=== PATIENT | male | born 1975 | race African-American/Black ===

== ENCOUNTER 2017-09-18 21:53 | Emergency (ER) | payer BC ==
[2017-09-18] MEDS: IV NORMAL SALINE 1000ML BAG 1,000 ML IV (22:30)
[2017-09-19 00:02] LABS: AGAP ISTAT 17 mmol/L (6-14); BUN ISTAT 5 mg/dL (8-26); CHLORIDE ISTAT 103 mmol/L (98-110); CREATININE ISTAT 1.3 mg/dL (0.5-1.4); GLUCOSE ISTAT 104 mg/dL (70-99); HEMATOCRIT ISTAT 44 % (37-52); ION CA ISTAT 1.11 mmol/L (1.13-1.32); POTASSIUM ISTAT 3.5 mmol/L (3.5-5.0); SODIUM ISTAT 143 mmol/L (135-145); TOT CO2 ISTAT 28 mmol/L (23-32)
[2017-09-19] MEDS: THIAMINE 100 MG TABLET. PO (00:30)
== END 2017-09-19 00:27 | disposition home or self-care (01) ==
LOC: ER 09-19 00:27
DX: F10.20 Alcohol dependence, uncomplicated (principal); E86.0 Dehydration
CPT/HCPCS: 36415; 80047; 85014; 85018; 96360; 99284-25; J7030

== ENCOUNTER 2020-04-25 15:40 | Emergency (ER) | payer BC, OTHER ==
[~2020-04-25] VITALS: Ht 182.9 cm; Wt 75.0 kg
[2020-04-25] MEDS ORDERED: IV NORMAL SALINE 1000ML BAG 1,000 ML IV ONE (16:45)
[2020-04-25] MEDS ORDERED: ONDANSETRON PF 4 MG/2 ML VIAL. IV ONE (16:45)
[2020-04-25 16:48] LABS: BASO # 0.1 x10^3/uL (0.0-0.2); BASO % 1 % (0-3); EOS % 1 % (0-3); LYMPH # 2.7 x10^3/uL (1.0-4.8); LYMPH % 39 % (24-48); MEAN CORPUSCULAR HEMOGLOBIN 30 pg (25-35); MEAN CORPUSCULAR HGB CONC 34 g/dL (31-37); MEAN CORPUSCULAR VOLUME 89 fL (79-100); MONO # 0.5 x10^3/uL (0.0-1.1); MONO % 8 % (0-9); NEUT # 3.6 x10^3/uL (1.8-7.7); NEUT % 52 % (31-73); PLATELET COUNT 379 x10^3/uL (140-400); RED BLOOD COUNT 4.97 x10^6/uL (4.30-5.70); RED CELL DISTRIBUTION WIDTH 15.4 % (11.5-14.5); WHITE BLOOD COUNT 6.9 x10^3/uL (4.0-11.0)
[2020-04-25 16:56] LABS: CREATININE 0.9 mg/dL (0.7-1.3); GFR 109.9; POTASSIUM 4.2 mmol/L (3.5-5.1)
[2020-04-25 17:02] LABS: ALBUMIN 4.2 g/dL (3.4-5.0); ALBUMIN/GLOBULIN RATIO 0.9 (1.0-1.7); MAGNESIUM 2.4 mg/dL (1.8-2.4); TOTAL BILIRUBIN 0.4 mg/dL (0.2-1.0); TOTAL PROTEIN 8.8 g/dL (6.4-8.2)
[2020-04-25] MEDS ORDERED: FAMOTIDINE 20 MG/2 ML VIAL IVP ONE (17:15)
[2020-04-25 17:48] VITALS: BP 142/87
[2020-04-25 18:14] LABS: BILIRUBIN,URINE NEGATIVE (NEG); CLARITY,URINE CLEAR; COLOR,URINE YELLOW; NITRITE,URINE NEGATIVE (NEG); PH,URINE 5.5 (<5.0-8.0); PROTEIN,URINE 30 mg/dL (NEG-TRACE); UROBILINOGEN,URINE 0.2 mg/dL (0.2 mg/dL)
[2020-04-25 18:24] LABS: BACTERIA,URINE 0 /HPF (0-FEW); HYALINE CASTS, URINE FEW /HPF; RBC,URINE 0 /HPF (0-2); SQUAMOUS EPITHELIAL CELL,UR OCC /LPF; WBC,URINE 0 /HPF (0-4)
--- NOTE | 2020-04-25 18:33 | PHYS DOC ---
Past Medical History Past Medical History: No Pertinent History Past Surgical History: No Surgical History Smoking Status: Current Every Day Smoker Alcohol Use: Heavy Drug Use: None General Adult EDM: Chief Complaint: NAUSEA/VOMITING/DIARRHA HPI: HPI: Patient is a 44 year old AA male who presents to the emergency department with complaints of nausea, and vomiting for the last 3 days. Patient reports epigastric and left upper quadrant abdominal pain. He denies any known exposure to COVID-19. Patient reports he has not had a job for the last 8 months and that he is keeping to himself at home. He denies any chest pain, shortness of breath, diarrhea, back pain, body aches, sore throat, headache, palpitations, or dizziness. The patient currently rates pain in his left upper quadrant an 8 out of 10 on the pain scale, he describes it as a sharp pain, he denies any radiation of the pain, he denies any alleviating factors, the pain is worse with palpation and vomiting. Patient reports he is only vomited once in the last 24 hours. He denies any blood in his vomit. Review of Systems: Review of Systems: Constitutional: Denies fever or chills. [] Eyes: Denies change in visual acuity. [] HENT: Denies nasal congestion or sore throat. [] Respiratory: Denies cough or shortness of breath. [] Cardiovascular: Denies chest pain or edema. [] GI: See HPI : Denies dysuria. [] Musculoskeletal: Denies back pain or joint pain. [] Integument: Denies rash. [] Neurologic: Denies headache Lymphatic: Denies swollen glands. [] Psychiatric: Denies depression or anxiety. [] Heart Score: Risk Factors: Risk Factors: DM, Current or recent (<one month) smoker, HTN, HLP, family history of CAD, obesity. Risk Scores: Score 0 - 3: 2.5% MACE over next 6 weeks - Discharge Home Score 4 - 6: 20.3% MACE over next 6 weeks - Admit for Clinical Observation Score 7 - 10: 72.7% MACE over next 6 weeks - Early Invasive Strategies Current Medications: Current Medications Medications (Trade) Dose Ordered Sig/Elisabeth Start Time Stop Time Status Last Admin Dose Admin Famotidine (Pepcid Vial) 20 mg 1X ONCE 04/25/20 17:15 04/25/20 17:16 DC 04/25/20 17:20 20 MG Ondansetron HCl (Zofran) 4 mg 1X ONCE 04/25/20 16:45 04/25/20 16:46 DC 04/25/20 16:47 4 MG Sodium Chloride 1,000 ml @ 1,000 mls/hr 1X ONCE 04/25/20 16:45 04/25/20 17:44 DC 04/25/20 16:47 1,000 MLS/HR Allergies: Allergies: Allergies Coded Allergies Type Severity Reaction Last Updated Verified No Known Drug Allergies 09/18/17 No Physical Exam: PE: Constitutional: Well developed, well nourished, no acute distress, non-toxic appearance. [] HENT: Normocephalic, atraumatic, bilateral external ears normal, nose normal; dry mucous membranes [] Eyes: PERRLA, EOMI, conjunctiva normal, no discharge. [] Neck: Normal range of motion, no stridor. [] Cardiovascular:Heart rate regular rhythm Lungs & Thorax: Respirations even and unlabored, no retractions, no respiratory distress Abdomen: soft, epigastric and left upper quadrant tenderness to palpation, no rebound tenderness, no guarding Skin: Warm, dry, no erythema, no rash. [] Extremities: No cyanosis, ROM intact, no edema. [] Neurologic: Alert and oriented X 3, no focal deficits noted. [] Psychologic: Affect normal, judgement normal, mood normal. [] Current Patient Data: Labs: Laboratory Tests Test 04/25/20 16:10 04/25/20 18:00 White Blood Count 6.9 x10^3/uL (4.0-11.0) Red Blood Count 4.97 x10^6/uL (4.30-5.70) Hemoglobin 15.0 g/dL (13.0-17.5) Hematocrit 44.0 % (39.0-53.0) Mean Corpuscular Volume 89 fL (79-100) Mean Corpuscular Hemoglobin 30 pg (25-35) Mean Corpuscular Hemoglobin Concent 34 g/dL (31-37) Red Cell Distribution Width 15.4 % (11.5-14.5) H Platelet Count 379 x10^3/uL (140-400) Neutrophils (%) (Auto) 52 % (31-73) Lymphocytes (%) (Auto) 39 % (24-48) Monocytes (%) (Auto) 8 % (0-9) Eosinophils (%) (Auto) 1 % (0-3) Basophils (%) (Auto) 1 % (0-3) Neutrophils # (Auto) 3.6 x10^3/uL (1.8-7.7) Lymphocytes # (Auto) 2.7 x10^3/uL (1.0-4.8) Monocytes # (Auto) 0.5 x10^3/uL (0.0-1.1) Eosinophils # (Auto) 0.0 x10^3/uL (0.0-0.7) Basophils # (Auto) 0.1 x10^3/uL (0.0-0.2) Sodium Level 130 mmol/L (136-145) L Potassium Level 4.2 mmol/L (3.5-5.1) Chloride Level 90 mmol/L (98-107) L Carbon Dioxide Level 29 mmol/L (21-32) Anion Gap 11 (6-14) Blood Urea Nitrogen 8 mg/dL (8-26) Creatinine 0.9 mg/dL (0.7-1.3) Estimated GFR (Cockcroft-Gault) 109.9 BUN/Creatinine Ratio 9 (6-20) Glucose Level 97 mg/dL (70-99) Calcium Level 9.0 mg/dL (8.5-10.1) Magnesium Level 2.4 mg/dL (1.8-2.4) Total Bilirubin 0.4 mg/dL (0.2-1.0) Aspartate Amino Transferase (AST) 47 U/L (15-37) H Alanine Aminotransferase (ALT) 28 U/L (16-63) Alkaline Phosphatase 120 U/L (46-116) H Total Protein 8.8 g/dL (6.4-8.2) H Albumin 4.2 g/dL (3.4-5.0) Albumin/Globulin Ratio 0.9 (1.0-1.7) L Lipase 275 U/L (73-393) Urine Collection Type Unknown Urine Color Yellow Urine Clarity Clear Urine pH 5.5 (<5.0-8.0) Urine Specific [place] 1.010 (1.000-1.030) Urine Protein 30 mg/dL (NEG-TRACE) Urine Glucose (UA) Negative mg/dL (NEG) Urine Ketones (Stick) 40 mg/dL (NEG) Urine Blood Negative (NEG) Urine Nitrite Negative (NEG) Urine Bilirubin Negative (NEG) Urine Urobilinogen Dipstick 0.2 mg/dL (0.2 mg/dL) Urine Leukocyte Esterase Negative (NEG) Urine RBC 0 /HPF (0-2) Urine WBC 0 /HPF (0-4) Urine Squamous Epithelial Cells Occ /LPF Urine Bacteria 0 /HPF (0-FEW) Urine Hyaline Casts Few /HPF Urine Mucus Slight /LPF Laboratory Tests 04/25/20 16:10 Laboratory Tests 04/25/20 16:10 Vital Signs: Vital Signs Date Time Temp Pulse Resp B/P (MAP) Pulse Ox O2 Delivery O2 Flow Rate FiO2 04/25/20 17:48 89 142/87 (105) 96 Room Air 04/25/20 15:45 98.6 18 98.6 EKG: EKG: [] Radiology/Procedures: Radiology/Procedures: [] Course & Med Decision Making: Course & Med Decision Making Pertinent Labs and Imaging studies reviewed. (See chart for details) 44-year-old male presents to the emergency department with complaints of nausea, vomiting, and upper left abdominal pain for 3 days. Was given a liter of normal saline, 4 mg Zofran, 20 mg of Pepcid.. Patient reported feeling better after these medications. Work-up included labs and medications. CBC was unremarkable; CMP revealed a sodium of 130, chloride of 90, AST of 47, alk phos of 120; unremarkable urinalysis. Prescriptions written for Zofran and famotidine. Patient was encouraged to go home and follow a clear liquid diet for 24 hours then advance as tolerated starting with bland foods. Instructed the patient to follow-up with his primary care doctor this week if symptoms persist, return to the ER symptoms worsen or he develops a fever. Patient verbalized an understanding of home care, medications, follow-up, and return to ED instructions and was in agreement with the plan of care. [] Dragon Disclaimer: Dragon Disclaimer: This electronic medical record was generated, in whole or in part, using a voice recognition dictation system. Departure Departure Impression: Primary Impression: Nausea & vomiting Qualified Codes: R11.2 - Nausea with vomiting, unspecified Additional Impression: Gastritis Qualified Codes: K29.00 - Acute gastritis without bleeding Disposition: HOME, SELF-CARE Condition: STABLE Referrals: NO PCP (PCP) Patient Instructions: Gastritis, Adult, [id number], Nausea and Vomiting, [id number] Additional Instructions: Fill prescriptions and use them as directed. Recommend clear fluids for the next 24 hours. Then you may advance to bland foods such as bananas, rice, applesauce, and dry toast. Follow-up with your primary care doctor in the next 1-2 days. Return to the emergency room if your symptoms worsen. [facility] [address] [place] [address] [facility] [address] [place] [address] [facility] [address] [facility] [place] [address] [facility] [address] [place] [address] [facility] [address] [place] [address] [facility] [address] [place] [address] [facility] [address] [place] [address] [facility] [address] [place] [address] [facility] [address] [place] [address] [facility] [address] [place] [address] Scripts Famotidine (FAMOTIDINE) 20 Mg Tablet 20 MG PO HS for 10 Days, #10 TAB 0 Refills Prov: NIKKI HERRERA APRN 04/25/20 Ondansetron Hcl (ONDANSETRON HCL) 4 Mg Tablet 1 TAB PO PRN Q6HRS PRN for NAUSEA/VOMITING for 3 Days, #10 TAB 0 Refills Prov: NIKKI HERRERA APRN 04/25/20 Justicifation of Admission Dx: Justifications for Admission: Justification of Admission Dx: N/A NIKKI HERRERA APRN Apr 25, 2020 18:32
[2020-04-25] MEDS ORDERED: FAMO20TA5 PO (18:40)
[2020-04-25] MEDS ORDERED: ONDA-84 PO (18:40)
== END 2020-04-25 19:00 | disposition home or self-care (01) ==
LOC: ER 15:40
DX: K29.00 Acute gastritis without bleeding (principal); R11.2 Nausea with vomiting, unspecified; R10.12 Left upper quadrant pain; R10.13 Epigastric pain; F17.200 Nicotine dependence, unspecified, uncomplicated
CPT/HCPCS: 36415; 80053; 81001; 83690; 83735; 85025; 96361; 96374; 96375; 99285; J2405; J3490; J7030

== ENCOUNTER 2020-05-29 06:00 | Emergency (ER) | payer OTHER ==
[~2020-05-29] VITALS: Ht 182.9 cm; Wt 62.7 kg
[~2020-05-29 06:00] MED LIST: FAMO20TA5 PO; ONDA-84 PO
--- NOTE | 2020-05-29 06:18 | PHYS DOC ---
Past Medical History Past Medical History: No Pertinent History Past Surgical History: No Surgical History Smoking Status: Current Every Day Smoker Alcohol Use: Heavy Drug Use: None General Adult EDM: Chief Complaint: OTHER COMPLAINTS HPI: HPI: The history was obtained from the patient and mother. Patient is a 44-year-old male with PMH alcohol abuse, chronic pancreatitis who presents with a chief complaint of alcohol detoxification. Mother presents with son to our emergency department for concerns of behavioral issues and alcohol abuse. She states that he drinks most daily. She states that he experienced a closed head injury in November 2019 has had behavioral issues since then. She denies any recent trauma or injury. States that he did come home late tonight and was argumentative, agitated and belligerent. She states they were seen at a local facility 2 days ago for similar issues and he was going to be placed into alcohol detoxification facility however no beds were available. Patient is argumentative and verbally aggressive. Unwilling to participate and interview. However he is alert and oriented x3 at this time. GCS 15. Review of Systems: Review of Systems: Constitutional: Denies fever or chills. [] Eyes: Denies change in visual acuity. [] HENT: Denies nasal congestion or sore throat. [] Respiratory: Denies cough or shortness of breath. [] Cardiovascular: Denies chest pain or edema. [] GI: Denies abdominal pain, nausea, vomiting, bloody stools or diarrhea. [] : Denies dysuria. [] Musculoskeletal: Denies back pain or joint pain. [] Integument: Denies rash. [] Neurologic: Denies headache, focal weakness or sensory changes. [] Endocrine: Denies polyuria or polydipsia. [] Lymphatic: Denies swollen glands. [] Psychiatric: Denies depression or anxiety. [] Heart Score: Risk Factors: Risk Factors: DM, Current or recent (<one month) smoker, HTN, HLP, family history of CAD, obesity. Risk Scores: Score 0 - 3: 2.5% MACE over next 6 weeks - Discharge Home Score 4 - 6: 20.3% MACE over next 6 weeks - Admit for Clinical Observation Score 7 - 10: 72.7% MACE over next 6 weeks - Early Invasive Strategies Allergies: Allergies: Allergies Coded Allergies Type Severity Reaction Last Updated Verified No Known Drug Allergies 09/18/17 No Physical Exam: PE: Constitutional: Well developed, well nourished, no acute distress, non-toxic appearance. [] HENT: Normocephalic, atraumatic, bilateral external ears normal, oropharynx moist, no oral exudates, nose normal. [] Eyes: PERRLA, EOMI, conjunctiva normal, no discharge. [] Neck: Normal range of motion, no tenderness, supple, no stridor. [] Cardiovascular:Heart rate regular rhythm, no murmur [] Lungs & Thorax: Bilateral breath sounds clear to auscultation [] Abdomen: soft, no tenderness, no masses, no pulsatile masses. [] Skin: Warm, dry, no erythema, no rash. [] Back: No tenderness, no CVA tenderness. [] Extremities: No tenderness, no cyanosis, no clubbing, ROM intact, no edema. [] Neurologic: Alert with intact cognitive function. No aphasia, dysarthria, or neglect. GCS 15. Pupils 3 mm briskly reactive b/l. No APD present. Cranial nerves 2-12 grossly intact; no facial asymmetry present, tongue midline, shoulder shrugging strength intact. Strength 5/5 and symmetric throughout. Light touch sensation intact throughout. Cerebellar testing appropriate without evidence of dysdiadochokinesia. DTR's 2+ in all 4 extremities. Negative pronator drift bilaterally. Gait normal Psychologic: Agitated. Verbally aggressive. Current Patient Data: Labs: Laboratory Tests Test 05/29/20 06:22 05/29/20 07:25 White Blood Count 4.9 x10^3/uL Red Blood Count 4.10 x10^6/uL Hemoglobin 12.4 g/dL Hematocrit 37.6 % Mean Corpuscular Volume 92 fL Mean Corpuscular Hemoglobin 30 pg Mean Corpuscular Hemoglobin Concent 33 g/dL Red Cell Distribution Width 15.0 % Platelet Count 337 x10^3/uL Neutrophils (%) (Auto) 44 % Lymphocytes (%) (Auto) 45 % Monocytes (%) (Auto) 9 % Eosinophils (%) (Auto) 1 % Basophils (%) (Auto) 1 % Neutrophils # (Auto) 2.2 x10^3/uL Lymphocytes # (Auto) 2.2 x10^3/uL Monocytes # (Auto) 0.4 x10^3/uL Eosinophils # (Auto) 0.0 x10^3/uL Basophils # (Auto) 0.0 x10^3/uL Prothrombin Time 12.0 SEC Prothromb Time International Ratio 0.9 Sodium Level 144 mmol/L Potassium Level 4.3 mmol/L Chloride Level 103 mmol/L Carbon Dioxide Level 33 mmol/L Anion Gap 8 Blood Urea Nitrogen 4 mg/dL Creatinine 0.6 mg/dL Estimated GFR (Cockcroft-Gault) 175.5 BUN/Creatinine Ratio 7 Glucose Level 210 mg/dL Calcium Level 8.6 mg/dL Magnesium Level 2.4 mg/dL Total Bilirubin 0.2 mg/dL Aspartate Amino Transf (AST/SGOT) 112 U/L Alanine Aminotransferase (ALT/SGPT) 110 U/L Alkaline Phosphatase 146 U/L Total Protein 7.1 g/dL Albumin 3.6 g/dL Albumin/Globulin Ratio 1.0 Lipase 343 U/L Salicylates Level 4.4 mg/dL Salicylate Last Dose Date Unknown Salicylate Last Dose Time Unknown Acetaminophen Level < 2 mcg/ml Acetaminophen Last Dose Date Unknown Acetaminophen Last Dose Time Unknown Ethyl Alcohol Level 378 mg/dL Urine Opiates Screen Neg Urine Methadone Screen Neg Urine Barbiturates Neg Urine Phencyclidine Screen Neg Urine Amphetamine/Methamphetamine Neg Urine Benzodiazepines Screen Neg Urine Cocaine Screen Neg Urine Cannabinoids Screen Pos Urine Ethyl Alcohol Pos Current Medications Medications (Trade) Dose Ordered Sig/Elisabeth Route PRN Reason Start Time Stop Time Status Last Admin Dose Admin Sodium Chloride 1,000 ml @ 1,000 mls/hr 1X ONCE IV 05/29/20 06:30 05/29/20 07:29 DC 05/29/20 06:39 Folic Acid (Folic Acid) 1 mg 1X ONCE PO 05/29/20 06:30 05/29/20 06:31 DC 05/29/20 06:39 Thiamine Mononitrate (Vitamin B-1) 100 mg 1X ONCE PO 05/29/20 06:30 05/29/20 06:31 DC 05/29/20 06:39 Lorazepam (Ativan) 1 mg 1X ONCE PO 05/29/20 07:00 05/29/20 07:01 DC 05/29/20 06:54 Lorazepam (Ativan) 0.5 mg 1X ONCE PO 05/29/20 08:00 05/29/20 08:01 DC Hydroxyzine HCl (Atarax) 50 mg 1X ONCE PO 05/29/20 08:00 05/29/20 08:01 DC 05/29/20 08:33 Vital Signs: Vital Signs Date Time Temp Pulse Resp B/P (MAP) Pulse Ox O2 Delivery O2 Flow Rate FiO2 05/29/20 06:02 98.6 117/72 (87) 96 Room Air 98.6 EKG: EKG: [] EKG consistent with normal sinus rhythm. Ventricular rate of 75 bpm. [place] normal. Intervals normal. No acute ischemic changes noted. Radiology/Procedures: Radiology/Procedures: [facility] [address] [place] [address] IMAGING REPORT Signed PATIENT: CHERYL MORA ACCOUNT: [id number] : 1975 LOCATION: ER AGE: 44 SEX: M EXAM STATUS: PRE ER ORD. PHYSICIAN: ROMA VINES DO REASON: AMS PROCEDURE: CT HEAD WO CONTRAST CT HEAD INDICATION: Altered mental status COMPARISON: None Available. Exposure: One or more of the following individualized dose reduction techniques were utilized for this examination: 1. Automated exposure control 2. Adjustment of the mA and/or kV according to patient size 3. Use of iterative reconstruction technique TECHNIQUE: 5 mm contiguous axial images were obtained from the skull base to the vertex in both bone and soft tissue algorithm. FINDINGS: No abnormal attenuation within the brain parenchyma. No evidence of acute intracranial hemorrhage. No extra-axial fluid collections. No mass effect or midline shift. Ventricular size is appropriate. Basal cisterns are patent. No fractures identified.Charles-white differentiation is preserved.Globes and orbits are within normal limits. Paranasal sinuses and mastoid air cells are clear. IMPRESSION: No acute intracranial findings. Electronically signed by: Figueroa Leary MD (05/29/2020 6:41 AM) [id number] DICTATED and SIGNED BY: FIGUEROA LEARY MD DATE: 05/29/20 0641 [] Course & Med Decision Making: Course & Med Decision Making Pertinent Labs and Imaging studies reviewed. (See chart for details) [] Patient is a 44-year-old male who presents with chief complaint of follow-up with alcohol detoxification. Initially patient was resistant to care however verbal de-escalation efforts were utilized. Patient did agree to work-up. Labs do show transaminitis likely secondary to his alcohol usage. Lipase of 343. Clinically the patient shows no signs of pancreatitis or gallbladder disease as he has no reproducible tenderness to palpation of his abdomen at all. Furthermore no nausea or vomiting or fevers. Lab abnormalities are likely due to alcohol usage. He does have an elevated alcohol level. Patient was given oral Ativan. While being monitored in the emergency department his disposition did improve. He did become more cooperative. Physical assessment team did evaluate the patient at bedside. Mom and patient state both of their main desires for alcohol detoxification. Patient is open to treatment. After evaluation by psychiatric assessment team patient will be discharged to [facility] for alcohol detoxification. Mom states that she will drive him directly there. They were notified and are expecting him. At this time the patient's clinical intoxication does appear significantly improved. He also has an adult to safely transport him to the detoxification center. Return precautions discussed and understood. Stable for discharge to [facility]. Gume Disclaimer: Gume Disclaimer: This electronic medical record was generated, in whole or in part, using a voice recognition dictation system. Departure Departure Impression: Primary Impression: Alcohol abuse Additional Impression: Transaminitis Disposition: HOME, SELF-CARE Condition: STABLE Referrals: NO PCP (PCP) Patient Instructions: Alcohol Problems Justicifation of Admission Dx: Justifications for Admission: Justification of Admission Dx: N/A ROMA VINES DO May 29, 2020 06:18
[2020-05-29] MEDS ORDERED: IV NORMAL SALINE 1000ML BAG 1,000 ML IV ONE (06:30)
[2020-05-29] MEDS ORDERED: THIAMINE 100 MG TABLET. PO ONE (06:30)
[2020-05-29] MEDS ORDERED: FOLIC ACID 1 MG TABLET. PO ONE (06:30)
[2020-05-29 06:44] LABS: CALCIUM 8.6 mg/dL (8.5-10.1); CREATININE 0.6 mg/dL (0.7-1.3); GFR 175.5; POTASSIUM 4.3 mmol/L (3.5-5.1)
--- NOTE | 2020-05-29 06:44 | RAD ---
CT HEAD INDICATION: Altered mental status COMPARISON: None Available. Exposure: One or more of the following individualized dose reduction techniques were utilized for this examination: 1. Automated exposure control 2. Adjustment of the mA and/or kV according to patient size 3. Use of iterative reconstruction technique TECHNIQUE: 5 mm contiguous axial images were obtained from the skull base to the vertex in both bone and soft tissue algorithm. FINDINGS: No abnormal attenuation within the brain parenchyma. No evidence of acute intracranial hemorrhage. No extra-axial fluid collections. No mass effect or midline shift. Ventricular size is appropriate. Basal cisterns are patent. No fractures identified.Charles-white differentiation is preserved.Globes and orbits are within normal limits. Paranasal sinuses and mastoid air cells are clear. IMPRESSION: No acute intracranial findings. Electronically signed by: Figueroa Leary MD (05/29/2020 6:41 AM) [id number]
[2020-05-29 06:50] LABS: ALBUMIN 3.6 g/dL (3.4-5.0); TOTAL BILIRUBIN 0.2 mg/dL (0.2-1.0); TOTAL PROTEIN 7.1 g/dL (6.4-8.2)
[2020-05-29 06:57] LABS: ACETAMIN < 2 mcg/ml (10-30); ETHANOL 378 mg/dL (0-10); SALIC 4.4 mg/dL (2.8-20.0)
[2020-05-29 07:00] LABS: BASO % 1 % (0-3); EOS % 1 % (0-3); HEMATOCRIT 37.6 % (39.0-53.0); HEMOGLOBIN 12.4 g/dL (13.0-17.5); LYMPH # 2.2 x10^3/uL (1.0-4.8); LYMPH % 45 % (24-48); MEAN CORPUSCULAR HEMOGLOBIN 30 pg (25-35); MEAN CORPUSCULAR HGB CONC 33 g/dL (31-37); MEAN CORPUSCULAR VOLUME 92 fL (79-100); MONO # 0.4 x10^3/uL (0.0-1.1); MONO % 9 % (0-9); NEUT # 2.2 x10^3/uL (1.8-7.7); NEUT % 44 % (31-73); PLATELET COUNT 337 x10^3/uL (140-400); WHITE BLOOD COUNT 4.9 x10^3/uL (4.0-11.0)
[2020-05-29 07:41] LABS: AMPHETAMINE/METHAMPHETAMINE NEG (NEG); BARBITURATES NEG (NEG); BENZODIAZEPINES NEG (NEG); CANNABINOIDS POS (NEG); COCAINE NEG (NEG); METHADONE NEG (NEG); OPIATES NEG (NEG); PHENCYCLIDINE NEG (NEG)
[2020-05-29] MEDS ORDERED: LORazepam 0.5 MG TABLET PO ONE (08:00)
[2020-05-29] MEDS ORDERED: hydrOXYzine 25 MG TABLET PO ONE (08:00)
[2020-05-29 08:32] VITALS: BP 130/89
--- NOTE | 2020-05-29 09:31 | EKG ---
[facility] [address] [place] [address] Test Date: 2020-05-29 Test Time: 07:24:07 Pat Name: CHERYL MORA Department: Room: Gender: M [employer]: : 1975 Requested By: ORMA VINES Order Number: [id number] Reading MD: Measurements Intervals [place] Rate: 75 P: 36 MO: 122 QRS: 22 QRSD: 82 T: 39 QT: 382 QTc: 429 Interpretive Statements SINUS RHYTHM NORMAL ECG RI6.02 No previous ECG available for comparison
== END 2020-05-29 09:05 | disposition home or self-care (01) ==
LOC: ER 06:00
DX: F10.10 Alcohol abuse, uncomplicated (principal); R74.0 Nonspecific elevation of levels of transaminase and lactic acid dehydrogenase [LDH]; R20.2 Paresthesia of skin; F17.200 Nicotine dependence, unspecified, uncomplicated; K86.0 Alcohol-induced chronic pancreatitis
CPT/HCPCS: 36415; 70450; 80053; 80307; 80329; 83690; 83735; 85025; 85610; 93005; 96360; 99285; G0480; J7030

== ENCOUNTER → 2020-11-08 | Outpatient (CLI) | payer OTHER ==
[~2020-11-08] MED LIST changes: +ESCITALOPRAM OX10 MG PO; +GABA600T7 PO; +LIPA1CAP PO; +PANT20TA2 PO; +SUCR1TAB35 PO
== END ==
LOC: LAB 09:41
PROVIDERS: ATTEND Internal Medicine Gastroenterology
DX: Z01.812 Encounter for preprocedural laboratory examination (principal); R93.89 Abnormal findings on diagnostic imaging of other specified body structures; Z20.822 Contact with and (suspected) exposure to COVID-19
CPT/HCPCS: U0003

== ENCOUNTER → 2020-11-10 | Day surgery (SDC) | payer OTHER ==
[~2020-11-10] MED LIST changes: +IV RINGERS,LACTATED 1000ML 1,000 ML IV ONE; +PROPOFOL 10 MG/ML (20ML) VIAL. IV ONE
[2020-11-10 09:05] VITALS: BP 111/68
--- NOTE | 2020-11-12 13:02 | PATHOLOGY ---
[facility] Accession Number: [id number] . 01 Material submitted: . gastrointestinal site - GASTRIC MASS BIOPSY . 01 Clinical history: . ABNORMAL CT . 02 Diagnosis: Gastric body mucosa, gastric mass biopsy: - Superficial edema, congestion, and mild chronic inflammation. (JPM:junie; 11/12/2020) [facility] 11/12/2020 1158 Local . 02 Comment: Sections of the gastric biopsy reveal segments of gastric body mucosa showing superficial mucosal edema, congestion, and mild chronic inflammation. A properly controlled immunoperoxidase stain for Helicobacter is negative for Helicobacter organisms. There is no evidence of malignancy. (JPM:junie; 11/12/2020) . Special stain performed: Immunoperoxidase stain for Helicobacter . 02 Electronically signed: . Osmin Fairbanks MD, Pathologist NPI- [id number] . 01 Gross description: . The specimen is received in formalin, labeled "Giovany Whiting, gastric mass biopsy". Received are three segments of pale andino tissue ranging in size from 0.2-0.6 cm in maximum dimensions. The specimen is submitted entirely in cassette A1. (CAA; 11/11/2020) QAC/QAC 11/11/2020 1120 Local . 02 Pathologist provided ICD-10: K29.50 . 02 CPT . 642522, [id number] Specimen Comment: Report sent to / Performed at: 01 [facility] [address], [place] [id number] MD Obey Gonzalez MD Phone: [phone] Performed at: 02 [facility] [address] [place], [place] [id number] MD Osmin Fairbanks MD Phone: [phone]
== END | disposition home or self-care (01) ==
LOC: ENDOS 07:04
PROVIDERS: ATTEND Internal Medicine Gastroenterology
DX: R10.13 Epigastric pain (principal); R93.3 Abnormal findings on diagnostic imaging of other parts of digestive tract; K31.89 Other diseases of stomach and duodenum; K29.50 Unspecified chronic gastritis without bleeding; K21.9 Gastro-esophageal reflux disease without esophagitis; F17.210 Nicotine dependence, cigarettes, uncomplicated; Z79.899 Other long term (current) drug therapy; Z98.890 Other specified postprocedural states
CPT/HCPCS: 43239; J2704